=== PATIENT | female | born 1960 ===

== ENCOUNTER 2018-05-02 06:43 | Day surgery (SDC) | payer MEDICAID ==
[2018-05-02 07:33] VITALS: BMI 39.3
[2018-05-02] MEDS ORDERED: Propofol 10 mg/ml Inj (20 ML) ONE (09:11)
[2018-05-02] MEDS ORDERED: Etomidate 20 mg/10ml Inj IV ONE (09:12)
[2018-05-02 09:55] VITALS: TEMP 98; O2SAT 98
[2018-05-02 10:33] VITALS: BP 158/85; PULSE 65; RESP 22
== END 2018-05-02 10:30 | disposition home or self-care (01) ==
LOC: C.ENDO 06:43
PROVIDERS: ATTEND Internal Medicine Gastroenterology
DX: K21.0 Gastro-esophageal reflux disease with esophagitis (principal)
CPT/HCPCS: 43239; 88305; 88312; J2001; J2704